=== PATIENT | female | born 1980 | race Caucasian/White ===

== ENCOUNTER 2021-12-23 17:06 | Emergency (ER) | payer OTHER ==
[2021-12-23 18:39] LABS: Amorphous Sediment,Urine Rare /hpf; Appearance,Urine Cloudy (Clear); Bacteria,Urine Rare /hpf; Bilirubin,Urine Negative (Negative); Blood,Urine Large (Negative); Color,Urine Yellow; Glucose,Urine (UA) Negative (Negative); Ketones,Urine Negative (Negative); Leukocyte Esterase,Urine Trace (Negative); Mucus,Urine Many /hpf; Nitrite,Urine Negative (Negative); PH, Urine 5.5 (5.0-8.0); Protein,Urine 1+ (Negative); RBC,Urine >182 /hpf (0-5); Squamous Epithelial Cell,Urine 3 /hpf (0-4); Urobilinogen,Urine <2.0 mg/dL (<2.0); WBC,Urine 4 /hpf (0-5)
[2021-12-23] MEDS ORDERED: ONDANSETRON 4 MG/2 ML VIAL IVP STA (18:42)
[2021-12-23] MEDS ORDERED: SODIUM CHLORIDE 0.9% 1,000 ML IV STA (18:42)
[2021-12-23] MEDS ORDERED: MORPHINE SULFATE 4 MG/ML SYRINGE IV STA (18:42)
[2021-12-23 19:41] LABS: Basophils % (A) 1 %; Eosinophils # (A) 0.1 k/uL (0-0.7); Eosinophils % (A) 1 %; HCT 40.3 % (34.0-46.0); HGB 13.5 gm/dL (11.4-16.0); Lymphocytes # (A) 1.4 k/uL (1.0-4.8); Lymphocytes % (A) 21 %; MCH 30.9 pg (25.0-35.0); MCHC 33.4 g/dL (31.0-37.0); MCV 92.4 fL (80.0-100.0); Mean Platelet Volume 7.6; Monocytes # (A) 0.4 k/uL (0-1.0); Monocytes % (A) 6 %; Neutrophils # (A) 4.7 k/uL (1.3-7.7); Neutrophils % (A) 69 %; Platelet Count 250 k/uL (150-450); RBC 4.36 m/uL (3.80-5.40); RDW 13.1 % (11.5-15.5); WBC 6.8 k/uL (3.8-10.6)
[2021-12-23] MEDS ORDERED: PROCHLORPERAZINE INJ 10 MG/2 ML VIAL IVP STA (19:41)
[2021-12-23 19:46] LABS: HCG,Qualitative Serum Not Detected
[2021-12-23 19:50] LABS: ALT 28 U/L (4-34); AST 30 U/L (14-36); African American GFR (CKD) >90 (>60 ml/min/1.73 sqM); Albumin 4.6 g/dL (3.5-5.0); Alkaline Phosphatase 106 U/L (38-126); Anion Gap 15 mmol/L; Blood Urea Nitrogen 10 mg/dL (7-17); C Reactive Protein <0.5 mg/dL (<1.0); Calcium 9.5 mg/dL (8.4-10.2); Carbon Dioxide 21 mmol/L (22-30); Chloride 109 mmol/L (98-107); Glucose 118 mg/dL (74-99); Lipase 110 U/L (23-300); Non-African American GFR(CKD) >90 (>60 ml/min/1.73 sqM); Potassium 3.2 mmol/L (3.5-5.1); Sodium 145 mmol/L (137-145); Total Bilirubin 0.3 mg/dL (0.2-1.3); Total Protein 7.3 g/dL (6.3-8.2)
[2021-12-23] MEDS ORDERED: HYDROmorphone 0.5 MG/0.5 ML SYRINGE IVP STA (20:03)
--- NOTE | 2021-12-23 20:53 | CT ---
EXAMINATION TYPE: CT abdomen pelvis w con DATE OF EXAM: 12/23/2021 COMPARISON: None HISTORY: Severe right side abdominal pain CT DLP: 1395 mGycm Automated exposure control for dose reduction was used. CONTRAST: Performed with IV Contrast, patient injected with 100cc mL of Isovue 370. images obtained from the diaphragm to the floor the pelvis with the IV contrast. Lung bases are clear of consolidation. No pleural effusion. Heart size is normal. No pericardial effu rika. Liver spleen stomach pancreas Appear Intact. The bile ducts are not dilated. Gallbladder appears normal. There is no adrenal mass. Kidneys have normal size and contour. No hydronephrosis. Ureters are not di lated. No retroperitoneal adenopathy. Appendix is posterior and appears normal. Bladder distends smoo thly. No inguinal hernia. No free fluid in the pelvis. No pelvic mass. There is no mesenteric edema. No ascites or free air. No sign of a bowel obstruction. Uterus is retro verted. The lumbar vertebra have normal alignment. Posterior orbits are intact. No compression fracture. Bony pelvis is intact. The hip joints are intact. The sacroiliac joints are intact. IMPRESSION: Normal appendix. No acute abnormality in the abdomen pelvis. Large retroverted uterus could be fibroi d uterus. I do not see a cause for right-sided pain.
[2021-12-23] MEDS ORDERED: cefTRIAXone 1,000 MG VIAL (IM USE) IM STA (21:36)
[2021-12-23] MEDS ORDERED: LEVOFLOXACIN 500 MG TAB PO STA (21:41)
--- NOTE | 2021-12-23 21:44 | US ---
EXAMINATION TYPE: US pelvic complete DATE OF EXAM: 12/23/2021 COMPARISON: CT: today CLINICAL HISTORY: r abd pain VB, please rule out torsion and fibroi. RLQ pain x 1 day TECHNIQUE: . Transabdominal sonographic images of the pelvis were acquired. Transvaginal sonographi c images were medically necessary to better assess the following anatomy: ut and ovaries Date of LMP: 5 years ago EXAM MEASUREMENTS: Uterus: 9.7 x 5.4 x 4.7 cm Endometrial Stripe: 0.49 cm Right Ovary: Not vis Left Ovary: 2.6 x 2.7 x 1.5 cm 1. Uterus: Retroverted Fibroid seen in fundus measuring 1.9 x 1.4 x 1.3cm. Calcifications seen throu ghout uterus 2. Endometrium: wnl 3. Right Ovary: Obscured by overlying bowel gas 4. Left Ovary: Complex cyst seen measuring 1.4 x 1.2 x 1.0cm 5. Bilateral Adnexa: Bowel gas 6. Posterior cul-de-sac: WNL IMPRESSION: No evidence of ovarian torsion. Right ovary not seen. Uterine fibroid. No adnexal mass.
--- NOTE | 2021-12-23 21:45 | ED ---
General Adult HPI - General Chief complaint: Recheck/Abnormal Lab/Rx Stated complaint: urogenital, vaginal bleeding Time Seen by Provider: 12/23/21 18:28 Source: patient Mode of arrival: ambulatory Limitations: no limitations - History of Present Illness Initial comments: Patient is a 41-year-old female who presents to the emergency department with a chief complaint of abdominal pain. Patient states symptoms started 2 days ago. States initially pain was intermittent however became constant today. Reports significant pain in the right lower abdomen without radiation. There is a nausea without vomiting. Also reports vaginal bleeding that began 2 days ago. Patient states she is on Depo-Provera and hasn't had a menstrual period in 5 years. Patient unable to quantify vaginal bleeding. Is not wearing pads. Patient mentions that her partner has possible sexually transmitted infection. States he was tested for sexually transmitted infections 2 days ago in the emergency department due to green penile discharge. Has not received results yet. Patient denies fever, chills, vaginal discharge, burning with urination, blood in urine. Denies history of abdominal surgery. - Related Data Previous Rx's Medication Instructions Recorded Levofloxacin [Levaquin] 500 mg PO DAILY 1 Days #5 tab 12/23/21 Ondansetron Odt [Zofran Odt] 4 mg PO Q8HR PRN #10 tab 12/23/21 Allergies Allergy/AdvReac Type Severity Reaction Status Date / Time doxycycline Allergy Rash/Hives Verified 12/23/21 17:44 erythromycin base Allergy Rash/Hives Verified 12/23/21 17:44 prednisone Allergy Rash/Hives Verified 12/23/21 17:44 tramadol Allergy Unknown Verified 12/23/21 17:40 ibuprofen [From Motrin] AdvReac Unknown Verified 12/23/21 17:40 meloxicam AdvReac Nausea Verified 12/23/21 17:44 paroxetine [From Paxil] AdvReac Hallucinati Verified 12/23/21 17:41 ons trazodone AdvReac Hallucinati Verified 12/23/21 17:41 ons Review of Systems ROS Statement: Those systems with pertinent positive or pertinent negative responses have been documented in the HPI. ROS Other: All systems not noted in ROS Statement are negative. Past Medical History Additional Past Medical History / Comment(s): CERBAL PALSY History of Any Multi-Drug Resistant Organisms: None Reported Past Psychological History: Anxiety, Bipolar, Depression, PTSD Smoking Status: Current some day smoker Past Alcohol Use History: None Reported Past Drug Use History: Marijuana General Exam Limitations: no limitations General appearance: alert, in no apparent distress Head exam: Present: atraumatic, normocephalic, normal inspection Eye exam: Present: normal appearance, PERRL, EOMI. Absent: scleral icterus, conjunctival injection, periorbital swelling Respiratory exam: Present: normal lung sounds bilaterally. Absent: respiratory distress, wheezes, rales, rhonchi, stridor Cardiovascular Exam: Present: regular rate, normal rhythm, normal heart sounds. Absent: systolic murmur, diastolic murmur, rubs, gallop, clicks GI/Abdominal exam: Present: soft, tenderness (RLQ, significant ), normal bowel sounds. Absent: distended, guarding, rebound, rigid External exam: Absent: normal external exam, erythema, swelling, lesions Speculum exam: Present: vaginal bleeding. Absent: erythema, vaginal discharge, cervical discharge By manual exam: Present: cervical motion tenderness Back exam: Absent: CVA tenderness (R), CVA tenderness (L) Neurological exam: Present: alert, oriented X3, CN II-XII intact Psychiatric exam: Present: normal affect, normal mood Skin exam: Present: warm, dry, intact, normal color. Absent: rash Course Vital Signs 12/23/21 12/23/21 12/23/21 17:35 19:10 22:00 Temperature 98.7 F 98.5 F Pulse Rate 101 H 78 98 Respiratory 20 16 18 Rate Blood Pressure 157/88 157/88 143/74 O2 Sat by Pulse 98 100 99 Oximetry Medical Decision Making - Medical Decision Making This is a 41-year-old female presenting with abdominal pain and vaginal bleeding. There is significant tenderness with palpation of the right lower quadrant without rigidity or guarding. Speculum exam was very painful for patient. There was no discharge to suggest infection however there was significant cervical motion tenderness. Afebrile. Laboratory studies obtained. There is no leukocytosis. is not detected. Urinalysis shows >182 RBCs. Rapid Trichomonas is negative. Pain controlled. CT of the abdomen and pelvis with contrast was obtained which shows a normal appendix. No acute abnormality in the abdomen and pelvis. Possible fibroid noted. Pelvic ultrasound was then obtained which showed fibroid in the fundus measuring 1.91.41.3 cm. The right ovary and bilateral adnexa were not well visualized therefore I did discuss case with Dr. Hastings. Patient has appointment with staff technologist in [place] tomorrow and with controlled pain it is reasonable for patient to be discharged with strict return parameters. She was given Rocephin for possible gonorrhea. She has allergy to doxycycline and azithromycin therefore Levaquin was given. She'll be discharged with Levaquin and will follow up at her gynecology appointment tomorrow. Dr. Mcadams is my attending. - Lab Data Result diagrams: 12/23/21 19:10 12/23/21 19:10 Lab Results 12/23/21 12/23/21 12/23/21 Range/Units 18:23 19:10 19:10 WBC 6.8 (3.8-10.6) k/uL RBC 4.36 (3.80-5.40) m/uL Hgb 13.5 (11.4-16.0) gm/dL Hct 40.3 (34.0-46.0) % MCV 92.4 (80.0-100.0) fL MCH 30.9 (25.0-35.0) pg MCHC 33.4 (31.0-37.0) g/dL RDW 13.1 (11.5-15.5) % Plt Count 250 (150-450) k/uL MPV 7.6 Neutrophils % 69 % Lymphocytes % 21 % Monocytes % 6 % Eosinophils % 1 % Basophils % 1 % Neutrophils # 4.7 (1.3-7.7) k/uL Lymphocytes # 1.4 (1.0-4.8) k/uL Monocytes # 0.4 (0-1.0) k/uL Eosinophils # 0.1 (0-0.7) k/uL Basophils # 0.0 (0-0.2) k/uL ESR (0-20) mm/hr Sodium 145 (137-145) mmol/L Potassium 3.2 L (3.5-5.1) mmol/L Chloride 109 H (98-107) mmol/L Carbon Dioxide 21 L (22-30) mmol/L Anion Gap 15 mmol/L BUN 10 (7-17) mg/dL Creatinine 0.76 (0.52-1.04) mg/dL Est GFR (CKD-EPI)AfAm >90 (>60 ml/min/1.73 sqM) Est GFR (CKD-EPI)NonAf >90 (>60 ml/min/1.73 sqM) Glucose 118 H (74-99) mg/dL Calcium 9.5 (8.4-10.2) mg/dL Total Bilirubin 0.3 (0.2-1.3) mg/dL AST 30 (14-36) U/L ALT 28 (4-34) U/L Alkaline Phosphatase 106 (38-126) U/L C-Reactive Protein <0.5 (<1.0) mg/dL Total Protein 7.3 (6.3-8.2) g/dL Albumin 4.6 (3.5-5.0) g/dL Lipase 110 (23-300) U/L HCG, Qual Not Detected Urine Color Yellow Urine Appearance Cloudy H (Clear) Urine pH 5.5 (5.0-8.0) Ur Specific [place] 1.020 (1.001-1.035) Urine Protein 1+ H (Negative) Urine Glucose (UA) Negative (Negative) Urine Ketones Negative (Negative) Urine Blood Large H (Negative) Urine Nitrite Negative (Negative) Urine Bilirubin Negative (Negative) Urine Urobilinogen <2.0 (<2.0) mg/dL Ur Leukocyte Esterase Trace H (Negative) Urine RBC >182 H (0-5) /hpf Urine WBC 4 (0-5) /hpf Ur Squamous Epith Cells 3 (0-4) /hpf Amorphous Sediment Rare H (None) /hpf Urine Bacteria Rare H (None) /hpf Urine Mucus Many H (None) /hpf Trichomonas Ag (Rapid) (Negative) Blood Type Blood Type Confirm Blood Type Recheck Bld Type Recheck Status Antibody Screen Spec Expiration Date 12/23/21 12/23/21 12/23/21 Range/Units 19:30 19:30 19:44 WBC (3.8-10.6) k/uL RBC (3.80-5.40) m/uL Hgb (11.4-16.0) gm/dL Hct (34.0-46.0) % MCV (80.0-100.0) fL MCH (25.0-35.0) pg MCHC (31.0-37.0) g/dL RDW (11.5-15.5) % Plt Count (150-450) k/uL MPV Neutrophils % % Lymphocytes % % Monocytes % % Eosinophils % % Basophils % % Neutrophils # (1.3-7.7) k/uL Lymphocytes # (1.0-4.8) k/uL Monocytes # (0-1.0) k/uL Eosinophils # (0-0.7) k/uL Basophils # (0-0.2) k/uL ESR 14 (0-20) mm/hr Sodium (137-145) mmol/L Potassium (3.5-5.1) mmol/L Chloride (98-107) mmol/L Carbon Dioxide (22-30) mmol/L Anion Gap mmol/L BUN (7-17) mg/dL Creatinine (0.52-1.04) mg/dL Est GFR (CKD-EPI)AfAm (>60 ml/min/1.73 sqM) Est GFR (CKD-EPI)NonAf (>60 ml/min/1.73 sqM) Glucose (74-99) mg/dL Calcium (8.4-10.2) mg/dL Total Bilirubin (0.2-1.3) mg/dL AST (14-36) U/L ALT (4-34) U/L Alkaline Phosphatase (38-126) U/L C-Reactive Protein (<1.0) mg/dL Total Protein (6.3-8.2) g/dL Albumin (3.5-5.0) g/dL Lipase (23-300) U/L HCG, Qual Urine Color Urine Appearance (Clear) Urine pH (5.0-8.0) Ur Specific [place] (1.001-1.035) Urine Protein (Negative) Urine Glucose (UA) (Negative) Urine Ketones (Negative) Urine Blood (Negative) Urine Nitrite (Negative) Urine Bilirubin (Negative) Urine Urobilinogen (<2.0) mg/dL Ur Leukocyte Esterase (Negative) Urine RBC (0-5) /hpf Urine WBC (0-5) /hpf Ur Squamous Epith Cells (0-4) /hpf Amorphous Sediment (None) /hpf Urine Bacteria (None) /hpf Urine Mucus (None) /hpf Trichomonas Ag (Rapid) (Negative) Blood Type O Positive Blood Type Confirm O Positive Blood Type Recheck No Previous Record Bld Type Recheck Status CABO Indicated Antibody Screen NEGATIVE Spec Expiration Date 12/26/2021 - 232912/23/21 Range/Units 19:53 WBC (3.8-10.6) k/uL RBC (3.80-5.40) m/uL Hgb (11.4-16.0) gm/dL Hct (34.0-46.0) % MCV (80.0-100.0) fL MCH (25.0-35.0) pg MCHC (31.0-37.0) g/dL RDW (11.5-15.5) % Plt Count (150-450) k/uL MPV Neutrophils % % Lymphocytes % % Monocytes % % Eosinophils % % Basophils % % Neutrophils # (1.3-7.7) k/uL Lymphocytes # (1.0-4.8) k/uL Monocytes # (0-1.0) k/uL Eosinophils # (0-0.7) k/uL Basophils # (0-0.2) k/uL ESR (0-20) mm/hr Sodium (137-145) mmol/L Potassium (3.5-5.1) mmol/L Chloride (98-107) mmol/L Carbon Dioxide (22-30) mmol/L Anion Gap mmol/L BUN (7-17) mg/dL Creatinine (0.52-1.04) mg/dL Est GFR (CKD-EPI)AfAm (>60 ml/min/1.73 sqM) Est GFR (CKD-EPI)NonAf (>60 ml/min/1.73 sqM) Glucose (74-99) mg/dL Calcium (8.4-10.2) mg/dL Total Bilirubin (0.2-1.3) mg/dL AST (14-36) U/L ALT (4-34) U/L Alkaline Phosphatase (38-126) U/L C-Reactive Protein (<1.0) mg/dL Total Protein (6.3-8.2) g/dL Albumin (3.5-5.0) g/dL Lipase (23-300) U/L HCG, Qual Urine Color Urine Appearance (Clear) Urine pH (5.0-8.0) Ur Specific [place] (1.001-1.035) Urine Protein (Negative) Urine Glucose (UA) (Negative) Urine Ketones (Negative) Urine Blood (Negative) Urine Nitrite (Negative) Urine Bilirubin (Negative) Urine Urobilinogen (<2.0) mg/dL Ur Leukocyte Esterase (Negative) Urine RBC (0-5) /hpf Urine WBC (0-5) /hpf Ur Squamous Epith Cells (0-4) /hpf Amorphous Sediment (None) /hpf Urine Bacteria (None) /hpf Urine Mucus (None) /hpf Trichomonas Ag (Rapid) Negative (Negative) Blood Type Blood Type Confirm Blood Type Recheck Bld Type Recheck Status Antibody Screen Spec Expiration Date Disposition Clinical Impression: Vaginal bleeding, Exposure to sexually transmitted disease (STD), Vaginal pain, Abdominal pain Disposition: HOME SELF-CARE Condition: Good Instructions (If sedation given, give patient instructions): Pelvic Inflammatory Disease (ED), Sexually Transmitted Diseases (ED) Additional Instructions: You have been treated for possible gonorrhea. Take antibiotic as directed for chlamydia infection. Your testing for gonorrhea and chlamydia will come back in 2-3 days. You will be called if theyre are positive results. Please do not have sexual intercourse until you and your partner finish treatment. Discussed right lower abdominal pain with staff technologist tomorrow. Please also discussed the fibroid found on ultrasound. Return to the emergency department if you experience new, concerning, or worsening symptoms. Prescriptions: Levofloxacin [Levaquin] 500 mg PO DAILY 1 Days #5 tab Ondansetron Odt [Zofran Odt] 4 mg PO Q8HR PRN #10 tab PRN Reason: Nausea Is patient prescribed a controlled substance at d/c from ED?: No Referrals: None,Stated [Primary Care Provider] - 1-2 days Time of Disposition: 21:45
[2021-12-23 22:11] VITALS: BP 143/74; PULSE 98; RESP 18; TEMP 98.5
[2021-12-23] MEDS ORDERED: cefTRIAXone IN SWFI 1,000 MG/10 ML SYRINGE IVP STA (22:23)
== END 2021-12-23 22:38 | disposition home or self-care (01) ==
LOC: EC 17:06
DX: F17.200 Nicotine dependence, unspecified, uncomplicated (principal); A63.8 Other specified predominantly sexually transmitted diseases; Z88.1 Allergy status to other antibiotic agents; Z88.8 Allergy status to other drugs, medicaments and biological substances; Z88.5 Allergy status to narcotic agent; Z88.9 Allergy status to unspecified drugs, medicaments and biological substances
CPT/HCPCS: 36415; 86900; 86901; 80053; 85652; 83690; 85025; 86850; 86140; 81001; 84703; 87808; 87491; 87591; 87070; 87086; 76856; 76830; 74177; 99284; 96374; 96375; 96361; J2270; J0780; J2405; J0696; J1170; Q9967